=== PATIENT | male | born 1985 | race African-American/Black ===

== ENCOUNTER 2022-12-04 19:06 | Emergency (ER) | payer BC, SELFPAY ==
--- NOTE | 2022-12-04 19:30 | ED_ITS ---
HPI - Extremity Injury (Upper) General Stated Complaint: wound on right 2nd finger Time Seen by Provider: 12/04/22 19:26 History of Present Illness HPI narrative: 36-year-old male presents to the emergency room for evaluation of pain and swelling to the tip of his right index finger. States pain has been present for about a months and is progressively gotten worse. States has been unable to have the finger evaluated due to his work schedule. Noticed yesterday some purulent drainage around the distal nailbed. Denies any injury or trauma. Patient states that he placed gorilla glue on the tip of his finger to prevent the purulent drainage from draining. Related Data Allergies Allergy/AdvReac Type Severity Reaction Status Date / Time No Known Allergies Allergy Mild Unverified 01/27/09 01:17 Review of Systems Review of Systems: CONSTITUTIONAL: Denies fever, chills, or sweats. EYES: Denies visual changes, redness, or discharge. ENT: Denies rhinorrhea, congestion, sore throat, or otalgia. CARDIOVASCULAR: Denies chest pain, palpitations, or edema. RESPIRATORY: Denies cough or dyspnea. GASTROINTESTINAL: Denies abdominal pain, nausea, vomiting, or diarrhea. GENITOURINARY: Denies dysuria or hematuria. SKIN: Denies rash or itching. MUSCULOSKELETAL: Denies back pain, joint pain, or myalgia. NEUROLOGIC: Denies headache, numbness, dizziness, or weakness. PSYCHIATRIC: Denies anxiety or depression. Exam Narrative: GENERAL: Well-appearing, well-nourished, no physical limitations, and in no acute distress. HEAD: Normocephalic, atraumatic. EYES: Conjunctivae normal, PERRLA and EOMI. CHEST: Clear to auscultation. No respiratory distress. No wheezes rales or rhonchi. HEART: Regular rate and rhythm. No murmur heard. Normal peripheral pulses. EXTREMITIES: Normal range of motion. No edema. No clubbing or cyanosis SKIN: Right index finger: +TTP with erythema, STS to the pad. Purulent drainage noted to tip of finger around the distal nail NEURO: No focal deficits. Alert and oriented x3. MAEW. CN's II-XI intact bilaterally, normal gait PSYCH: Cooperative. Normal mood and affect. Discharge Plan Discharge Clinical Impression: Felon of finger of right hand Patient Disposition: Home, Self-Care Condition: Stable Instructions: Antibiotic Form, Cellulitis (ED) Prescriptions: New cephalexin 500 mg tablet 500 mg PO Q12H 7 Days Qty: 14 0RF cephalexin 500 mg tablet 500 mg PO Q8H 7 Days Qty: 21 0RF sulfamethoxazole-trimethoprim 800-160 mg tablet 1 tablet PO Q12H 7 Days Qty: 14 0RF Follow-up/Referrals: PHYSICIAN,PHOTO OFFSET PRINTER [Primary Care Provider] - Time of Disposition: 19:27
[2022-12-04 19:31] VITALS: BP 135/84; PULSE 71; RESP 16; TEMP 36.3; O2SAT 99
== END 2022-12-04 19:51 | disposition home or self-care (01) ==
LOC: ANHED 19:43
PROVIDERS: Emergency Provider Nurse Practitioner Family
DX: L03.011 Cellulitis of right finger (principal)
CPT/HCPCS: 99283